=== PATIENT | male | born 2000 | race Caucasian/White ===

== ENCOUNTER 2024-04-16 23:43 | Emergency (ER) | payer MEDICAID, SELFPAY ==
[2024-04-16 23:45] VITALS: BP 164/123; PULSE 120; RESP 24; TEMP 37.1; O2SAT 97
[2024-04-17] MEDS: dexAMETHasone 10 MG/ML Vial PO.IVFORM (00:11)
[2024-04-17] MEDS: Ipratropium Bromide 0.06% NASAL SPRAY 2 SPRAY NASAL (00:12)
--- NOTE | 2024-04-17 00:30 | EDS_ITS ---
HPI History of Present Illness Chief Complaint: Asthma Informant: patient Narrative Narrative: Patient is a 23-year-old male with past medical history of schizophrenia and bipolar disorder. He states he stays in a house/fdc and that multiple there have been sick. He reports this evening he noticed increased congestion and difficulty breathing through his nose. He denies any history of asthma but states with his difficulty breathing he felt that this could be an asthma exacerbation and presents to the hospital for evaluation [facility] Medical History (Updated 04/17/24 @ 02:[address] Shola Gilliam, DO) Schizophrenia Bipolar 1 disorder ADD (attention deficit disorder) Allergy/AdvReac Type Severity Reaction Status Date / Time No Known Allergies Allergy Verified 04/16/24 23:47 Surgical History no surgical history Social History Smoking Status: Current some day smoker tobacco type: cigars ROS ROS ED Constitutional Constitutional ED: Denies chills or fever(s) ENT ENT ED: Reports rhinorrhea; Denies sore throat Cardiovascular Cardiovascular: Denies chest pain Respiratory/Chest Respiratory/Chest: Reports cough and dyspnea Gastrointestinal Gastrointestinal: Denies abdominal pain, diarrhea, nausea or vomiting Genitourinary Genitourinary ED: Denies dysuria Musculoskeletal Musculoskeletal: Denies myalgias Integumentary Denies rash Neurologic Neurologic: Denies headache(s) Psychiatric Psychiatric: Denies suicidal ideation or suicidal thoughts Hematologic/Lymphatic Hematologic/Lymphatic: Denies easy bleeding or easy bruising Allergic/Immunologic Allergic/Immunologic ED: Denies mouth swelling or tongue swelling EXAM Physical Exam Const Vital Signs: 04/16/24 23:45 04/16/24 23:48 Temperature 98.7 F Temperature Source Oral Pulse Rate 120 H Respiratory Rate 24 H Respiratory Effort Normal Non-Labored Respiratory Depth Normal Respiratory Pattern Normal Blood Pressure 164/123 H Blood Pressure Mean 136 Pulse Ox 97 Oxygen Delivery Method Room Air Room Air Positive well nourished, well developed and obese General Appearance ED: well developed; Negative for pallor Nutritional Appearance: obese HEENT Reports moist mucous membranes HEENT Narrative: Cobblestoning is noted in the posterior pharynx consistent with sinus drainage without airway edema or compromise No secondary findings in the posterior pharynx to suggest infection Eyes PERRL and EOMs intact bilaterally General Eye ED: Negative for scleral icterus Neck supple and no JVD Neck Narrative: No nuchal rigidity or meningeal signs Resp clear to auscultation bilaterally Resp Narrative: Breath sounds are diminished throughout but overall clear to auscultation. There is mild tachypnea noted but no nasal flaring retractions or accessory muscle use. No rales wheezes or rhonchi noted Cardio regular rhythm Rate: tachycardic GI normal to inspection, nondistended, normoactive bowel sounds, non-tender, non- distended and no masses Auscultation: normoactive bowel sounds Palpation: soft Extremity normal to inspection Extremity Narrative: No asymmetric edema no pitting edema negative Homans' sign bilaterally Neuro oriented x3, CN's II-XII intact bilaterally and no sensory deficits noted Sensorium / Orientation: alert Motor Exam: strength 5/5 throughout Psych mental status grossly normal Skin no rashes or lesions noted General Skin Exam: Negative for jaundice or pallor MDM MDM MDM Narrative Medical decision making narrative: Patient presented to the ER hypertensive and tachycardic. However he was not in respiratory distress and was satting in the high 90s on room air. He reported multiple exposures to sick contacts at home. He states that there is COVID running through the house where he stays in with his congestion and shortness of breath there is high likelihood for COVID. I discussed obtaining a swab for this. Patient states he does not want that obtained/performed. He does not have a history of asthma he does not have wheezes on exam and therefore I do not feel there is need for breathing treatment. The patient reported feeling better after he was able to clear his nose. Therefore at this time he will be ordered steroids and a nasal spray to help reduce symptoms but as he is not in respiratory distress or requiring supplemental oxygen he is otherwise safe for discharge History & Record Review Discussion w/independent historian: Patient Discharge Plan Triage Chief Complaint: Asthma ED Provider: Shola Gilliam Dx/Rx/DC Orders Clinical Impression: Viral syndrome, Schizophrenia, Bipolar disorder Instructions: ED Viral Syndrome (Adult) Primary Care Provider: Care Physician,No Primary Referrals: Marcelino Flores MD [Med Staff - Active Staff] - Care Physician,No Primary [Primary Care Provider] - Print Language: Yoruba Disposition Disposition: Elopement Discharge Date/Time: 04/17/24 00:32
== END 2024-04-17 00:32 | disposition left against medical advice (07) ==
PROVIDERS: Emergency Provider Emergency Medicine; Visit Provider Emergency Medicine
DX: B34.9 Viral infection, unspecified (principal); F20.9 Schizophrenia, unspecified; F31.9 Bipolar disorder, unspecified; F17.290 Nicotine dependence, other tobacco product, uncomplicated
CPT/HCPCS: 99282

== ENCOUNTER 2024-04-17 01:27 | Emergency (ER) | payer MEDICAID, SELFPAY ==
[2024-04-17 01:28] VITALS: BP 145/94; PULSE 81; RESP 16; TEMP 36.3; O2SAT 100; BMI 41.8
[2024-04-17 02:03] LABS: Absolute Neutrophil Count 9.5 X10^3/uL (2.0-7.7); Basophil# 0.06 X10^3/uL; Basophil% 0.5 % (0-1); Eosinophil# 0.09 X10^3/uL; Eosinophils% 0.8 % (0-5); Hematocrit 41.2 % (40-54); Hemoglobin 14.5 g/dL (13.0-16.5); Lymphocyte % 12.7 % (19-41); Mean Corp Hgb Conc 35.2 g/dL (32-36); Mean Corpuscular Hgb 29.7 pg (27.0-32.0); Mean Corpuscular Volume 84.4 fL (80-94); Monocyte# 0.63 X10^3/uL; Monocyte% 5.3 % (0-10); NRBC Flagged by Analyzer 0 % (0-5); Neutrophil % 80.1 % (47-70); Platelet Count 321 K/mm3 (150-450); RBC Distribution Width CV 12.2 % (11.6-14.6); Red Blood Count 4.88 M/mm3 (4.6-6.2); White Blood Count 11.9 K/mm3 (4.4-11.0)
[2024-04-17 02:17] LABS: Alcohol, Blood (Medical)-Serum < 3.0 mg/dL; Anion Gap 9 (5-15); BUN 14 mg/dL (7-18); Calcium,Total 9.7 mg/dL (8.5-10.1); Chloride 105 mmol/L (98-107); Creatinine, Serum 0.94 mg/dL (0.70-1.30); EST Glomerular Filtration Rate 108 mL/min (>60); Est Glom Filt Rate - Afr Amer 130 mL/min (>60); Estimated Creatinine Clearance 175.14 ml/min; Glucose 115 mg/dL (74-106); Potassium 3.8 mmol/L (3.5-5.1); Sodium Level 136 mmol/L (136-145)
[2024-04-17 02:27] VITALS: BP 146/78; PULSE 94; RESP 18; O2SAT 98
[2024-04-17 02:41] LABS: Amphetamine Urine VISTA NEGATIVE (<1000 ng/mL); Barbiturate Urine VISTA NEGATIVE (< 200 ng/mL); Benzodiazepine Urine VISTA NEGATIVE (< 200 ng/mL); Cocaine Urine VISTA NEGATIVE (< 300 ng/mL); Ecstacy Urine VISTA NEGATIVE (< 500 ng/mL); Methadone Urine VISTA NEGATIVE (< 300 ng/mL); PCP Urine VISTA NEGATIVE (< 25 ng/mL); THC Urine VISTA NEGATIVE (< 50 ng/mL); Vista UDS pH Range 5
[2024-04-17] MEDS: LORazepam 1 MG Tablet PO (03:39)
[2024-04-17 03:46] VITALS: BP 140/72; PULSE 89; RESP 20; O2SAT 97
--- NOTE | 2024-04-17 05:28 | EX.ED.DYSGE1 ---
HPI History of Present Illness Chief Complaint: Suicidal Informant: patient Narrative Narrative: Patient is a 23-year-old male with past medical history of bipolar disorder and schizophrenia. He was seen earlier tonight secondary to feeling short of breath or that it was difficult to breathe through his nose. At that time he did not endorse any type of homicidal or suicidal ideation and was discharged. He states since leaving he has been having increasing thoughts of harming himself and therefore decided to return for evaluation and potential psychiatric admission. He does admit to a longstanding history of auditory hallucinations and states that he typically hears voices daily and states they typically tell him to hurt himself. However today he reports that there are now visual hallucinations in the form of shadows. He denies any alcohol or illicit drugs but states he does have a plan to harm himself and that plan is to run into traffic. Therefore with his worsening suicidal ideation and visual and auditory hallucinations he presents for evaluation [facility] Medical History (Updated 04/17/24 @ 05:[address] Shola Gilliam, ) Schizophrenia Bipolar 1 disorder ADD (attention deficit disorder) Allergy/AdvReac Type Severity Reaction Status Date / Time No Known Allergies Allergy Verified 04/16/24 23:47 Social History Smoking Status: Current some day smoker tobacco type: cigars ROS ROS ED Constitutional Constitutional ED: Denies chills or fever(s) ENT ENT ED: Reports rhinorrhea Respiratory/Chest Respiratory/Chest: Reports cough and dyspnea Gastrointestinal Gastrointestinal: Denies abdominal pain, diarrhea, nausea or vomiting Genitourinary Genitourinary ED: Denies dysuria Musculoskeletal Musculoskeletal: Denies myalgias Integumentary Denies rash Neurologic Neurologic: Denies headache(s) Psychiatric Psychiatric: Reports suicidal ideation and suicidal thoughts Allergic/Immunologic Allergic/Immunologic ED: Denies mouth swelling or tongue swelling EXAM Physical Exam Const Vital Signs: 04/17/24 01:28 04/17/24 02:27 04/17/24 03:46 Temperature 97.4 F L Temperature Source Temporal Pulse Rate 81 94 89 Respiratory Rate 16 18 20 H Blood Pressure 145/94 H 146/78 H 140/72 H Blood Pressure Mean 111 100 94 Pulse Ox 100 98 97 Oxygen Delivery Method Room Air Room Air Room Air Positive well nourished and well developed General Appearance ED: well developed; Negative for pallor HEENT HEENT Narrative: Nasal mucosa is hyperemic and boggy with enlarged inferior nasal turbinate There is cobblestoning in the posterior pharynx consistent with sinus drainage without airway edema or compromise No secondary findings in the posterior pharynx to suggest infection Eyes PERRL and EOMs intact bilaterally General Eye ED: Negative for scleral icterus Neck supple Neck Narrative: No nuchal rigidity or meningeal signs noted Chest Wall palpation of chest normal Chest Narrative: No bony deformity or crepitance Resp normal respiratory effort and clear to auscultation bilaterally Resp Narrative: Breath sounds are slight diminished throughout but overall clear to auscultation without nasal flaring retractions tachypnea or accessory muscle use Cardio regular rate and regular rhythm GI normal to inspection, nondistended, normoactive bowel sounds, non-tender, non-distended and no masses Auscultation: normoactive bowel sounds Palpation: soft Extremity normal to inspection Neuro oriented x3, CN's II-XII intact bilaterally and no sensory deficits noted Sensorium / Orientation: alert Motor Exam: strength 5/5 throughout Psych Psych Narrative: Patient reports auditory and visual hallucinations He endorses suicidal ideation with plan of running into traffic Skin no rashes or lesions noted and no wounds General Skin Exam: Negative for jaundice or pallor MDM MDM MDM Narrative Medical decision making narrative: Patient presented to the ER hypertensive otherwise with stable vitals. This is his second visit this evening but at this time he now endorses auditory and visual hallucinations and thoughts of self-harm. As he reports suicidal ideation with plan there is concerned that if discharged he would potentially follow through with self-harm and therefore a medical screening exam was performed and crisis center contacted. The patient's medical screening exam revealed no clinically significant finding. Therefore he was medically cleared and evaluated by crisis center in the ER. They agree that with his worsening auditory and visual hallucinations and persistent suicidal ideation now with plan that he is at high risk for self-harm and therefore recommend placement. The patient is medically cleared from emergency room standpoint for transfer/placement in a psychiatric hospital. History & Record Review Discussion w/independent historian: Patient Lab Data Attestation: I reviewed the patient's lab results. Labs: Laboratory Results - last 24 hr 04/17/24 04/17/24 01:50 02:16 WBC 11.9 H RBC 4.88 Hgb 14.5 Hct 41.2 MCV 84.4 MCH 29.7 MCHC 35.2 RDW Std Deviation 37.0 RDW Coeff of Javier 12.2 Plt Count 321 MPV 11.0 Immature Gran % (Auto) 0.600 Neut % (Auto) 80.1 H Lymph % (Auto) 12.7 L [place] % (Auto) 5.3 Eos % (Auto) 0.8 Baso % (Auto) 0.5 Absolute Neuts (auto) 9.5 H Absolute Lymphs (auto) 1.50 Nucleated RBC % 0 Sodium 136 Potassium 3.8 Chloride 105 Carbon Dioxide 22.0 Anion Gap 9 BUN 14 Creatinine 0.94 Estim Creat Clear Calc 175.14 Est GFR (MDRD) Af Amer 130 Est GFR (MDRD) Non-Af 108 BUN/Creatinine Ratio 15.0 Glucose 115 H Calcium 9.7 Urine Opiates Screen NEGATIVE Urine Methadone Screen NEGATIVE Ur Barbiturates Screen NEGATIVE Ur Phencyclidine Scrn NEGATIVE Ur Amphetamines Screen NEGATIVE MDMA (Ecstasy) Screen NEGATIVE U Benzodiazepines Scrn NEGATIVE Urine Cocaine Screen NEGATIVE U Cannabinoids Screen NEGATIVE Ur Drug Screen Comment Ethyl Alcohol < 3.0 Management Discussion w/another healthcare provider: Behavioral health Discharge Plan Triage Chief Complaint: Suicidal ED Provider: Shola Gilliam Dx/Rx/DC Orders Clinical Impression: Suicidal ideation, Schizophrenia, Bipolar disorder, Auditory hallucinations, Visual hallucinations Primary Care Provider: Care Physician,No Primary Referrals: Care Physician,No Primary [Primary Care Provider] - Print Language: Montenegrin Disposition Disposition: Psychiatric Hospital or Unit
--- NOTE | 2024-04-17 10:04 | ED.RN ---
PATIENT REQUESTING TO TALK WITH DOCTOR. DR. GARCIA MADE AWARE?
[2024-04-17 12:33] VITALS: BP 163/94; PULSE 105; RESP 16; O2SAT 94
[2024-04-17] MEDS: Acetaminophen 500 MG Tablet 1000 MG PO (14:35)
[2024-04-17] MEDS: OLANZapine 5 MG/TAB TAB.RAPDIS 10 MG PO (14:35)
[2024-04-17 20:00] VITALS: BP 144/75; PULSE 88; RESP 18; O2SAT 99
[2024-04-18 04:00] VITALS: BP 132/75; PULSE 81; RESP 16; TEMP 36.2; O2SAT 99
== END 2024-04-18 04:08 | disposition home or self-care (01) ==
PROVIDERS: Emergency Provider Emergency Medicine; Visit Provider Emergency Medicine
DX: F20.9 Schizophrenia, unspecified (principal); F31.9 Bipolar disorder, unspecified; R45.851 Suicidal ideations; F17.290 Nicotine dependence, other tobacco product, uncomplicated
CPT/HCPCS: 80048; 80307; 82077; 85025; 87635; 99285

== ENCOUNTER 2024-04-19 13:22 | Emergency (ER) | payer MEDICAID, SELFPAY ==
[2024-04-19 13:23] VITALS: BP 138/87; PULSE 114; RESP 16; TEMP 36.7; O2SAT 97; BMI 47.8
--- NOTE | 2024-04-19 13:56 | EX.ED.VIS.PS ---
HPI HPI - Psych History of Present Illness Chief Complaint: Suicidal Informant: patient Onset/Context/Timing Onset: Days (4) Context: Sudden Onset Timing: Continuous Worsened by: - (Nothing) Relieved by: Nothing Associated Symptoms Associated Symptoms - Psych: Positive for Depressed, Change in sleeping, Hopelessness, Suicidal Thoughts, Visual Hallucinations and Auditory Hallucinations; Negative for Change in Eating Specific plan (suicidal thought): Stab wound himself and running into traffic Narrative Narrative: Patient presents with suicidal ideation and depression that has been getting worse over the last 4 days. Patient states he has been off of his normal medications. Patient states she has had thoughts of stabbing himself and jumping into traffic. Patient states he hears voices and also sees things. Patient states he has been feeling hopeless and depressed. Patient states he has not been sleeping well. Patient states he needs to get back into a hospital to get his medications readjusted. [facility] Medical History (Updated 04/19/24 @ 15:[address] Yaniv Degroot DO) Schizophrenia Bipolar 1 disorder ADD (attention deficit disorder) Home Medications ?Medication ?Instructions ?Recorded ?Last Taken ?Type NK 04/19/24 Unknown History Allergy/AdvReac Type Severity Reaction Status Date / Time No Known Allergies Allergy Verified 04/16/24 23:47 Surgical History (Updated 04/19/24 @ 13:[address] Yaniv Degroot DO) Hx of tonsillectomy Social History Smoking Status: Current some day smoker tobacco type: cigars ROS ROS ED Constitutional Constitutional ED: Denies chills or fever(s) Eyes Eyes: Reports blurry vision; Denies diplopia ENT ENT ED: Reports sore throat; Denies rhinorrhea Cardiovascular Cardiovascular: Denies chest pain or palpitations Respiratory/Chest Respiratory/Chest: Reports dyspnea; Denies cough Gastrointestinal Gastrointestinal: Denies nausea or vomiting Genitourinary Genitourinary ED: Reports dysuria; Denies hematuria Musculoskeletal Musculoskeletal: Reports back pain and neck pain Integumentary Denies abscess or rash Neurologic Neurologic: Denies headache(s) or weakness Psychiatric Psychiatric: Reports depression, suicidal ideation and suicidal thoughts Allergic/Immunologic Allergic/Immunologic ED: Denies mouth swelling or urticaria EXAM Physical Exam Const Vital Signs: 04/19/24 13:23 Temperature 98.1 F Temperature Source Temporal Pulse Rate 114 H Respiratory Rate 16 Blood Pressure 138/87 H Blood Pressure Mean 104 Pulse Ox 97 Oxygen Delivery Method Room Air Positive well nourished and well developed General Appearance ED: well developed and NAD HEENT Reports moist mucous membranes Neck supple and no JVD Resp normal respiratory effort and clear to auscultation bilaterally Cardio Rate: regular rate Rhythm: regular rhythm GI non-tender and non-distended Palpation: soft Neuro oriented x3, CN's II-XII intact bilaterally and no sensory deficits noted Ene Coma Scale: document GCS findings Spontaneous Obeys Commands Oriented 15 Sensorium / Orientation: alert Motor Exam: strength 5/5 throughout Psych Appearance: grossly normal Activity / Motor Behavior: avoids eye contact Speech: pressured Mood & Affect: depressed and labile affect Thought Content: suicidality, No homicidality and hallucination(s) Positive for auditory and visual MDM MDM MDM Narrative Medical decision making narrative: Medical screening labs will be obtained. CBC will be obtained to assess for leukocytosis and anemia. Basic metabolic profile will be obtained to assess for electrolyte abnormality and renal function. Serum alcohol level will be obtained to assess for alcohol intoxication. Urine drug screen will be obtained to assess for substance abuse. Lab Data Attestation: I reviewed the patient's lab results. Lab results narrative: CBC was reviewed. There is a slight leukocytosis of 13.1. The remainder is within normal limits. Basic metabolic profile was reviewed and was within normal limits. Serum alcohol level was reviewed and was less than 3. Urine tox screen was reviewed and was positive for amphetamines, MDMA, and cannabinoids. Labs: Laboratory Results - last 24 hr 04/19/24 13:37 WBC 13.1 H RBC 4.71 Hgb 14.0 Hct 40.4 MCV 85.8 MCH 29.7 MCHC 34.7 RDW Std Deviation 39.3 RDW Coeff of Javier 12.6 Plt Count 317 MPV 10.9 Immature Gran % (Auto) 1.000 H Neut % (Auto) 70.3 H Lymph % (Auto) 15.7 L [place] % (Auto) 11.1 H Eos % (Auto) 1.1 Baso % (Auto) 0.8 Absolute Neuts (auto) 9.2 H Absolute Lymphs (auto) 2.05 Nucleated RBC % 0 Sodium 139 Potassium 3.6 Chloride 107 Carbon Dioxide 27.0 Anion Gap 5 BUN 12 Creatinine 0.90 Estim Creat Clear Calc 180.19 Est GFR (MDRD) Af Amer 136 Est GFR (MDRD) Non-Af 112 BUN/Creatinine Ratio 13.3 Glucose 111 H Calcium 9.5 Urine Opiates Screen NEGATIVE Urine Methadone Screen NEGATIVE Ur Barbiturates Screen NEGATIVE Ur Phencyclidine Scrn NEGATIVE Ur Amphetamines Screen POSITIVE H MDMA (Ecstasy) Screen POSITIVE H U Benzodiazepines Scrn NEGATIVE Urine Cocaine Screen NEGATIVE U Cannabinoids Screen POSITIVE H Ur Drug Screen Comment Ethyl Alcohol < 3.0 Treatment and Re-Evaluation Narrative: Suicide precautions were maintained. [place] slip was filled out. Patient is resting comfortably on reevaluation. Care of the patient will be turned over to the oncoming physician pending crisis evaluation and placement. Discharge Plan Triage Chief Complaint: Suicidal ED Provider: Yaniv Degroot Dx/Rx/DC Orders Clinical Impression: Suicidal ideation, Auditory hallucinations, Visual hallucinations Prescriptions: No Action NK Primary Care Provider: Care Physician,No Primary Referrals: Care Physician,No Primary [Primary Care Provider] - Print Language: Yoruba
[2024-04-19 14:13] LABS: Absolute Lymphocyte Count 2.05 X10^3/uL (0.83-4.51); Absolute Neutrophil Count 9.2 X10^3/uL (2.0-7.7); Basophil% 0.8 % (0-1); Eosinophil# 0.15 X10^3/uL; Eosinophils% 1.1 % (0-5); Hematocrit 40.4 % (40-54); Lymphocyte # 2.05 X10^3/ul (0.83-4.51); Lymphocyte % 15.7 % (19-41); Mean Corp Hgb Conc 34.7 g/dL (32-36); Mean Corpuscular Hgb 29.7 pg (27.0-32.0); Mean Corpuscular Volume 85.8 fL (80-94); Mean Platelet Vol. 10.9 fl (6.2-12.0); Monocyte# 1.45 X10^3/uL; Monocyte% 11.1 % (0-10); NRBC Flagged by Analyzer 0 % (0-5); Neutrophil # 9.21 X10^3/uL (2.7-7.7); Neutrophil % 70.3 % (47-70); Platelet Count 317 K/mm3 (150-450); RBC Distribution Width CV 12.6 % (11.6-14.6); RBC Distribution Width SD 39.3 fl (35.1-43.9); Red Blood Count 4.71 M/mm3 (4.6-6.2); White Blood Count 13.1 K/mm3 (4.4-11.0)
[2024-04-19 14:27] LABS: Alcohol, Blood (Medical)-Serum < 3.0 mg/dL
[2024-04-19 14:29] LABS: Anion Gap 5 (5-15); BUN 12 mg/dL (7-18); BUN/Creat Ratio 13.3 RATIO (10-20); Calcium,Total 9.5 mg/dL (8.5-10.1); Chloride 107 mmol/L (98-107); EST Glomerular Filtration Rate 112 mL/min (>60); Est Glom Filt Rate - Afr Amer 136 mL/min (>60); Estimated Creatinine Clearance 180.19 ml/min; Glucose 111 mg/dL (74-106); Potassium 3.6 mmol/L (3.5-5.1); Sodium Level 139 mmol/L (136-145)
--- NOTE | 2024-04-19 14:49 | NURSING ---
FAXED CHART TO CRISIS
[2024-04-19 16:00] LABS: Amphetamine Urine VISTA POSITIVE (<1000 ng/mL); Barbiturate Urine VISTA NEGATIVE (< 200 ng/mL); Benzodiazepine Urine VISTA NEGATIVE (< 200 ng/mL); Cocaine Urine VISTA NEGATIVE (< 300 ng/mL); Ecstacy Urine VISTA POSITIVE (< 500 ng/mL); Methadone Urine VISTA NEGATIVE (< 300 ng/mL); PCP Urine VISTA NEGATIVE (< 25 ng/mL); THC Urine VISTA POSITIVE (< 50 ng/mL); Vista UDS pH Range 6
[2024-04-19 19:05] VITALS: BP 97/85; PULSE 85; RESP 16; TEMP 36.3; O2SAT 100
[2024-04-19 23:00] VITALS: BP 117/79; PULSE 79; RESP 16; TEMP 36.6; O2SAT 100
[2024-04-20 02:51] VITALS: BP 123/68; PULSE 76; RESP 18; TEMP 36.6; O2SAT 100
[2024-04-20 06:42] VITALS: BP 127/78; PULSE 78; RESP 18; TEMP 36.7; O2SAT 100
--- NOTE | 2024-04-20 07:46 | NURSING ---
SPOKE TO [facility], WAS REFERRED TO MIRELLA DORADO YESTERDAY
[2024-04-20 08:46] VITALS: BP 131/79; PULSE 88; RESP 18; TEMP 36.2; O2SAT 98
[2024-04-20] MEDS: Acetaminophen 325 MG Tablet 650 MG PO ×2 (08:58→16:36)
--- NOTE | 2024-04-20 10:28 | ED.RN ---
PT CONTINUES TO BE VERBALLY LOUD AND ANGRY. 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 PT CONTINUES TO YELL FUCK THIS PLACE. [facility] THE [facility]. ZEINA REMAINS AT BEDSIDE. SULTANA RAINES AT BEDSIDE MULTIPLE TIMES
--- NOTE | 2024-04-20 10:31 | ED.RN ---
PT OFFERED FOOD AND DRINK. PT REFUSED
[2024-04-20 11:28] LABS: AST(SGOT) 32 U/L (15-37); Alanine Aminotransfer ALT/SGPT 56 U/L (16-61); Albumin, Serum 4.1 g/dL (3.2-5.0); Alkaline Phosphatase 87 U/L (45-117); Bilirubin, Direct 0.11 mg/dL (0.00-0.30); Globulin 3.5 g/dL (2.2-4.2); Protein, Total 7.6 g/dL (6.4-8.2)
--- NOTE | 2024-04-20 11:50 | NURSING ---
[facility]ISIS WILL STOP BACK IN LATER
[2024-04-20 12:24] VITALS: BP 132/87; PULSE 79; RESP 16; TEMP 36.4; O2SAT 96
--- NOTE | 2024-04-20 15:13 | ED.RN ---
[facility]ISIS INTO ROOM, CRISIS MADE PT AWARE THAT HE WOULD BE PLACED SOMEWHERE. PT GOT UPSET AND STARTED YELLING AT STAFF. OFFICER ALONSO AND SECURITY AT BEDSIDE. PT TOLD BEHAVIOR IS NOT TOLERATED.
--- NOTE | 2024-04-20 16:00 | ED.RN ---
AFTER CRISES TALKS TO PT, PT BECOMES VERY IRRATE. PT UP IN ROOM SCREAMING AND YELLING AT [facility] AND SITTER. PT SCREAMING FUCK THIS PLACE, FUCK YOU ALL. SULTANA GUPTA AND SECURITY PASTRANA IN WITH PT. PT FINALLY SETTLES DOWN, BEGINS ASKING FOR SNACKS AND DRINKS. THIS RN INTO ROOM. OFFERED PT SNACKS AND DRINKS WITH THE UNDERSTANDING THAT PT WILL REMAIN COOPERATIVE. PT AWARE IF HE BEGINS TO ACT UP ALL PRIVILEGES WILL BE REMOVED
--- NOTE | 2024-04-20 16:18 | ED.RN ---
PHONE TAKEN FROM PT FOR CALLING ATUL CASTELLON. PT CUSSING AND YELLING I HATE THIS FUCKING PLACE, I FUCKING WANT OUT OF HERE. YOUR FUCKING TRYING TO GET ME ARRESTED. OFFICER ALONSO AT BEDSIDE ATTEMPTING TO SPEAK WITH PT.
[2024-04-20] MEDS: LORazepam 1 MG Tablet PO (16:37)
[2024-04-20 16:47] VITALS: BP 142/91; PULSE 89; RESP 18; TEMP 36.6; O2SAT 97
[2024-04-20 19:53] VITALS: BP 129/70; PULSE 84; RESP 17; TEMP 36.7; O2SAT 95
[2024-04-21] VITALS: PULSE 72; RESP 16; O2SAT 98
[2024-04-21 06:12] VITALS: BP 137/73; PULSE 60; RESP 16; TEMP 36.2; O2SAT 94
[2024-04-21 10:00] VITALS: BP 107/58; PULSE 62; RESP 18; TEMP 36.8; O2SAT 98
--- NOTE | 2024-04-21 11:58 | ED.RN ---
PT REQUESTED TO BE REEVALUATED BY JENNY. TALKED WITH GIUSEPPE. EDGAR WILL PLAN ON BEING HERE AROUND [id number]. PT AWARE. PT CONTINUES TO AMP UP. AWARE PRIVILEGES WILL BE TAKEN AWAY
[2024-04-21 14:00] VITALS: BP 129/74; PULSE 90; RESP 18; TEMP 36.3; O2SAT 94
[2024-04-21] MEDS: Nicotine Polacrilex 2 MG GUM PO ×3 (15:26→21:10)
[2024-04-21] MEDS: LORazepam 1 MG Tablet PO (15:27)
--- NOTE | 2024-04-21 15:31 | ED.RN ---
PT BECOMES VERY AGGRESSIVE AND ANGRY WITH CRISES WORKER. PT SCREAMING AT STAFF. STATES FUCK THIS PLACE. PT ASKED TO CALM DOWN. PT ASKING FOR SNACKS. AWARE 1 STEP AT A TIME
--- NOTE | 2024-04-21 17:42 | NURSING ---
CALLED [facility], PENDING [place]
[2024-04-21 18:00] VITALS: BP 137/84; PULSE 89; RESP 18; O2SAT 94
[2024-04-21] MEDS: Acetaminophen 325 MG Tablet 650 MG PO (18:25)
[2024-04-21 22:00] VITALS: BP 141/92; PULSE 87; RESP 16; O2SAT 97
[2024-04-21] MEDS: traZODone 50 MG Tablet PO (22:16)
[2024-04-22 02:00] VITALS: BP 136/82; PULSE 74; RESP 16; O2SAT 95
[2024-04-22 06:37] VITALS: BP 137/73; PULSE 80; RESP 19; O2SAT 95
--- NOTE | 2024-04-22 12:45 | ED.RN ---
PT AUNT, AVELINA COLLINS CALLED AND WAS UPDATED ON PT STATUS AND WHERE HE IS GOING PER PT PERMISSION.
[2024-04-22] MEDS: Nicotine Polacrilex 2 MG GUM PO (13:29)
--- NOTE | 2024-04-22 15:01 | ED.RN ---
[facility] ETA UPDATE 15-20 MINUTES
[2024-04-22 15:15] VITALS: BP 136/97; PULSE 77; RESP 17; TEMP 36
[2024-04-22 15:24] VITALS: BP 136/97; PULSE 77; RESP 17; TEMP 36; O2SAT 95
== END 2024-04-22 15:32 ==
LOC: ED 14:31
PROVIDERS: Emergency Medicine; Emergency Provider Emergency Medicine; Visit Provider Emergency Medicine
DX: F32.A Depression, unspecified (principal); R45.851 Suicidal ideations; F17.290 Nicotine dependence, other tobacco product, uncomplicated; R44.0 Auditory hallucinations; R44.1 Visual hallucinations
CPT/HCPCS: 80048; 80076; 80307; 82077; 85025; 87426; 99284